=== PATIENT | female | born 1940 | race Caucasian/White ===

== ENCOUNTER → 2016-08-17 | Outpatient (CLI) | payer OTHER ==
[~2016-08-17] VITALS: Ht 167.6 cm; Wt 59.0 kg
[~2016-08-17] MED LIST: ADULT LOW DOSE81 MG PO; BENADRYL25 MG PO; BENTYL 20 MG TA20 M1 PO; CITRACAL + D C1 EACH PO; CLARITIN10 MG PO; COLACE100 MG PO; CRESTOR10 MG PO; DICYCLOMINE HCL20 MG PO; EX-LAX MAXIMUM25 MG PO; FIBER TABS625 MG PO; FISH OIL 1,0001 EAC5 PO; FISHOIL PO; FLEXERIL PO; IBUPROFEN 800800 M1 PO; LISINOPRIL10 MG PO; LOPRESSOR 50 MG50 M1 PO; MOBIC7.5 M1 PO; MULTIPLE VITAM1 EAC3 PO; NIACIN 500 MG500 M1 PO; OXYCODONE HCL 55 MG PO; OXYCONTIN10 M1 PO; PEPCID40 MG PO; PERCOCET 5-3251 EACH PO; PHENERGAN 25 MG25 M1 PO; PREDNISONE 1 MG1 M1 PO; PREDNISONE 10 M10 M1; PRINIVIL5 MG PO; SEROQUEL 25 MG25 M1 PO; SPIRONOLACTONE50 MG PO; TOPROL XL25 MG PO; TRAMADOL 50 MG50 MG PO; ZANTAC 150MG T150 M1 PO
--- NOTE | ~2016-08-17 | S ---
[facility] [place] [address] [place] [address] SURGICAL PATH RPT PROCEDURE Name: KELLY LARSON I Room #: REG [facility]..#: [id number] Admission: 08/17/16 Date of : 44 Discharge: Report #: [id number] Path Case #: [id number] PATHOLOGY REPORT COLLECTION DATE: 08/17/2016 RECEIVED DATE: 08/17/2016 SUBMITTING PHYS: Dr. Jovani Grossman OTHER PHYS: Dr. Brant Prado SPECIMEN(S) RECEIVED: A.SB bx B.Gastric bx * * * * * * * * * * * * FINAL DIAGNOSIS: A. Small bowel mucosa, rule out sprue, endoscopic biopsy: - Negative for villous blunting or increase in intraepithelial lymphocytosis (no diagnostic abnormalities present). B. Gastric mucosa, rule out Helicobacter pylori, endoscopic biopsy: - Mild reactive gastropathy. - Negative for intestinal metaplasia or atrophy. - Negative for Helicobacter pylori. COMMENT: Helicobacter pylori immunohistochemical stain performed on block B1 negative. (IUV:csd; d/t: 08/20/2016) PATHOLOGIST: Dianna Torrez M.D. REPORT ELECTRONICALLY SIGNED BY: Dianna Torrez M.D. DATE/TIME: 08/20/2016 16:18 * * * * * * * * * * * * GROSS PATHOLOGY: A. Received in formalin labeled "FILIPPO Christiansen," are three segments of gottlieb soft tissue measuring 0.6 x 0.6 x 0.2 cm in aggregate dimensions and ranging from 0.2 to 0.4 cm in maximum dimension. The specimen is submitted entirely in cassette A1. B. Received in formalin labeled "Kelly Larson, gastric," are three segments of gottlieb soft tissue measuring 0.9 x 0.6 x 0.1 cm in aggregate dimensions and ranging from 0.3 to 0.7 cm in maximum dimension. The specimen is submitted entirely in cassette B1. (CAA; 08/17/2016) CLINICAL HISTORY: [facility] [employer] [place] [address] SURGICAL PATH RPT PROCEDURE Name: KELLY LARSON I Room #: REG [facility]..#: [id number] Admission: 08/17/16 Date of : 44 Discharge: Report #: [id number] Path Case #: [id number] Abdominal pain, nausea, weight loss A. R/O sprue B. R/O H. pylori INITIAL CPT CODE(S): A; 85726 B; 62291, 41599 Professional services performed by [facility] at [address] , [place] [address] Technical services performed by [facility] at [address] [place] [address], [facility] [address] [address]. [facility] [address] [address] PHONE: [phone] DIRECTOR: Sim Cordova M.D. * * * END OF REPORT * * *
--- NOTE | ~2016-08-17 | P ---
[facility] [place] [address] PROCEDURE REPORT Name: BEBETO COLE I Room #: REG [facility].#: [id number] Admission: 08/17/16 Attend Phys: Jovani Alatorre Discharge: Date of : 44 Report #: [id number] THIS REPORT FOR: //name// CC: Jovani Prado MD DATE OF SERVICE: 08/17/2016 PROCEDURE PERFORMED: Upper endoscopy with biopsies. HISTORY OF PRESENT ILLNESS: The patient is a 76-year-old female who was seen in the office on 08/07/2016 with complaints of weight loss. She lost approximately 130 pounds over the last year. She does report some nausea starting last month. No significant emesis. Last colonoscopy was in February 2015, which showed diverticulosis. The patient denies any abdominal pain. She had a previous laparoscopic cholecystectomy 15 years ago. She is on aspirin and meloxicam among other medications. A CT scan of the abdomen and pelvis was performed in April which showed a segment of rectosigmoid colon suboptimally distended and appears to have some wall thickening, also a segment of distal ileal loop that demonstrates some wall thickening. Plan is for EGD and colonoscopy today. DESCRIPTION OF PROCEDURE: The risks and benefits of the procedure were explained to the patient, those risks including but not limited to bleeding, perforation, the risk of sedation. She understood these risks and gave informed consent. Sedation was given using ketamine and propofol per anesthesia. Next, using a standard InteraXoninon upper endoscope, the scope was placed in the patient's mouth and advanced under direct vision through the esophagus, stomach and into the second portion of the duodenum. The larynx was normal in appearance. The esophagus was normal throughout. The GE junction was normal. Overall, the gastric mucosa was normal. Biopsies were obtained to rule out the possibility of H. pylori. The pylorus was normal and patent. The duodenal bulb, first and second portion were all normal. Biopsies were also obtained to the duodenum to rule out the possibility of celiac sprue. The scope was then withdrawn and the procedure terminated. The patient tolerated the procedure well. IMPRESSION: Normal upper endoscopy. RECOMMENDATIONS: 1. Await biopsy results. 2. We will proceed with colonoscopy next today. [address] [address] PROCEDURE REPORT Name: BEBETO COLE Delma Room #: REG [facility]#: [id number] Admission: 08/17/16 Attend Phys: Jovani Alatorre Discharge: Date of : 44 Report #: [id number] Thank you for allowing me to participate in her care. <ELECTRONICALLY SIGNED> By: Jovani Grossman MD 08/17/16 1443 0906 1015 Jovani Grossman MD /nt
--- NOTE | ~2016-08-17 | P ---
[facility] [place] [address] PROCEDURE REPORT Name: DOUGLASBEBETO Delma Room #: REG [facility].#: [id number] Admission: 08/17/16 Attend Phys: Jovani Alatorre Discharge: Date of : 44 Report #: [id number] THIS REPORT FOR: //name// CC: Jovani Prado MD DATE OF SERVICE: 08/17/2016 PROCEDURE PERFORMED: Colonoscopy. HISTORY OF PRESENT ILLNESS: The patient is a 76-year-old female with weight loss. See EGD report for detailed HPI; however, the patient did have a CT scan in April of last year, which showed possible wall thickening in the rectosigmoid colon as well as the distal ileal loop. DESCRIPTION OF PROCEDURE: The risks and benefits of the procedure were explained to the patient, those risks including but not limited to bleeding, perforation, the risk of sedation. She understood these risks and gave informed consent. Sedation was given using ketamine and propofol per anesthesia. Next, a digital rectal exam was initially performed, which was normal. Next, using a standard [employer] colonoscope, the scope was placed in the patient's anus and advanced under direct vision to the cecum. The overall prep was fair. Most areas were well visualized. Multiple washings and aspirations were performed. The cecum and ileocecal valve was normal in appearance. The terminal ileum was intubated and normal in appearance. The ascending, transverse, descending colon were all normal other than melanosis coli was noted. The patient does have a history of constipation. In the sigmoid colon, multiple diverticula were noted. No evidence of inflammation, no thickening was noted. Rectal mucosa was normal. On retroflexion, small nonbleeding internal hemorrhoids were noted. Scope was then withdrawn and the procedure terminated. The patient tolerated the procedure well. IMPRESSION: 1. Sigmoid diverticulosis. 2. Internal hemorrhoids. 3. Otherwise, normal colonoscopy. RECOMMENDATIONS: 1. Etiology of weight loss is unclear. EGD and colonoscopy were essentially normal today. The patient had a possible segment of distal loop ileum on CT showing possible thickening. We would recommend awaiting biopsies initially. If these are negative, consider small bowel follow through next for further evaluation. [address] [address] PROCEDURE REPORT Name: BEBETO COLE I Room #: REG [facility] Chloe#: [id number] Admission: 08/17/16 Attend Phys: Jovani Alatorre Discharge: Date of : 44 Report #: [id number] Thank you for allowing me to participate in her care. <ELECTRONICALLY SIGNED> By: Jovani Grossman MD 08/17/16 1443 0908 1031 Jovani Grossman MD /nt
== END ==
LOC: GI 07:04
DX: Z12.11 Encounter for screening for malignant neoplasm of colon (principal); K57.30 Diverticulosis of large intestine without perforation or abscess without bleeding; K58.8 Other irritable bowel syndrome; K31.9 Disease of stomach and duodenum, unspecified; K21.9 Gastro-esophageal reflux disease without esophagitis; K64.8 Other hemorrhoids; I10 Essential (primary) hypertension; E78.5 Hyperlipidemia, unspecified; Z90.49 Acquired absence of other specified parts of digestive tract; Z90.710 Acquired absence of both cervix and uterus; Z96.643 Presence of artificial hip joint, bilateral; Z96.611 Presence of right artificial shoulder joint
CPT/HCPCS: 62110

== ENCOUNTER → 2016-11-08 | Outpatient (CLI) | payer OTHER | LOC: RAD 10-03 08:38 | DX: R63.4 Abnormal weight loss (principal); R11.0 Nausea ==

== ENCOUNTER 2018-02-26 16:09 | Emergency (ER) | payer OTHER ==
[~2018-02-26] VITALS: Ht 165.1 cm; Wt 59.0 kg
--- NOTE | ~2018-02-26 | EKG ---
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: : 1940 Requested By: Griselda Beasley Order Number: [id number] MD: Tao Britt Measurements Intervals [place] Rate: 91 P: -7 WI: 153 QRS: -68 QRSD: 101 T: 71 QT: 378 QTc: 466 Interpretive Statements Sinus rhythm Left anterior hemiblock Poor R wave progression Compared to ECG 05/26/2015 06:30:49 No significant change was found Electronically Signed On 02-27-2018 8:42:16 CDT by Tao Britt [email or web address] <ELECTRONICALLY SIGNED> By: Tao Britt MD, [facility] 02/27/18 0842 01 01 Tao Britt MD, FACC /EPI
--- NOTE | ~2018-02-26 | H ---
[facility] [place] [address] HISTORY AND PHYSICAL Name: DOUGLASBEBETO Delma Room #: DEP Chloe#: [id number] Admission: 02/26/18 Attend Phys: Discharge: 02/26/18 Date of : 44 Report #: [id number] THIS REPORT FOR: //name// CC: Griselda Prado DATE OF SERVICE: 02/26/2018 HISTORY OF PRESENT ILLNESS: This 77-year-old female has a chronically unstable left total hip arthroplasty. She has had 10-12 dislocations in the past. She has always required reduction under anesthesia. She has not dislocated for about 2 years. This evening, she was leaning forward while seated on the bed to reach something on the floor and the hip dislocated once again. She was brought to the Emergency Department and they were unable to reduce the hip. We have elected to bring her to the Operating Room for reduction under anesthesia. PAST MEDICAL HISTORY: Notable principally for these chronic hip problems. PHYSICAL EXAMINATION: GENERAL: She is frail, but alert. 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 She is in moderate discomfort. LUNGS: Clear. CARDIAC: Reveals a regular rate and rhythm. NECK AND BACK: Normal. EXTREMITIES: Left hip is shortened and rotated consistent with a posterior dislocation. NEUROLOGIC AND VASCULAR: Distal neurologic and vascular status appeared to be intact. X-rays confirm a posterior dislocation of the left hip. I have discussed this with the patient and her who wished to go ahead with reduction under anesthesia. <ELECTRONICALLY SIGNED> By: Lincoln Chester MD 03/04/18 1413 1925 1956 Lincoln Chester MD /nt
--- NOTE | ~2018-02-26 | O ---
[facility] [address] [address] OPERATIVE REPORT Name: BEBETO COLE I Room #: [facility] [id number] Admission: 02/26/18 Attend Phys: Discharge: 02/26/18 Date of : 44 Report #: [id number] THIS REPORT FOR: //name// CC: Griselda Prado DATE OF SERVICE: 02/26/2018 PREOPERATIVE DIAGNOSIS: Posterior dislocation, left total hip arthroplasty. POSTOPERATIVE DIAGNOSIS: Posterior dislocation, left total hip arthroplasty. PROCEDURE: Reduction of dislocated left total hip arthroplasty. SURGEON: Lincoln Chester MD. INDICATIONS: This 77-year-old female has a chronically unstable left total hip arthroplasty with about 10 or 12 dislocations in the past. She has not had a dislocation for over 2 years. She was leaning forward on her bed to reach the floor and felt the hip gave away and popped out of joint this evening. They were unable to reduce the hip in the Emergency Department and so, we brought her to the operating room for reduction under brief anesthetic. DESCRIPTION OF PROCEDURE: The patient was placed under brief anesthesia and relaxed. The left hip was then gently manipulated with flexion and rotation. The hip reduced in a satisfactory fashion. Its alignment was confirmed with an intraoperative x-ray. The hip seemed to be stable with gentle rotation and flexion. No further treatments were necessary. The patient was awakened and returned to recovery room in good condition. Her notes that she has always been able to go home immediately after closed reduction and is hoping to leave the hospital this evening from the recovery room once she is awake and stable. We will plan to see her back in the office in 2-3 weeks if any symptoms require at that point. <ELECTRONICALLY SIGNED> By: Lincoln Chester MD 03/04/18 1413 27 48 Lincoln Chester MD /nt
[2018-02-26] MEDS ORDERED: ONDANSETRON HCL4 M2 PO (16:21)
[2018-02-26] MEDS ORDERED: CARBIDOPA-LEVO1 EAC9 PO (16:21)
[2018-02-26] MEDS ORDERED: LINZESS290 MCG PO (16:22)
[2018-02-26] MEDS ORDERED: ZANAFLEX4 MG PO (16:23)
[2018-02-26] MEDS ORDERED: VITAMIN B-12500 MCG PO (16:24)
[2018-02-26 18:07] LABS: ABSOLUTE NEUTROPHILS 4.6 thou/uL (1.4-8.2); BASOPHILS 0.7 % (0.0-2.0); EOSINOPHILS 1.7 % (0.0-3.0); HEMATOCRIT 41.7 % (37.0-47.0); LYMPHOCYTES 24.1 % (24.0-44.0); MCH 30.2 pg (26.0-34.0); MCHC 33.6 g/dL (28.0-37.0); MCV 89.9 fL (80.0-100.0); MONOCYTES 5.1 % (1.0-8.0); PLATELET COUNT 167 thou/uL (150-400); POLYS 68.4 % (36.0-66.0); RBC 4.63 mil/uL (4.20-5.00); WBC 6.7 thou/uL (4.0-11.0)
[2018-02-26 18:09] LABS: CALCIUM 9.5 mg/dL (8.5-10.1); CREATININE 0.9 mg/dL (0.6-1.0); POTASSIUM 3.8 mmol/L (3.5-5.1)
[2018-02-26 18:15] LABS: ALBUMIN 3.5 g/dL (3.4-5.0); TOTAL BILIRUBIN 0.5 mg/dL (<0.1-1.0); TOTAL PROTEIN 6.9 g/dL (6.4-8.2)
[2018-02-26 19:42] VITALS: BP 128/63
== END 2018-02-26 19:08 | disposition still patient (30) ==
LOC: ER 16:09
PROVIDERS: Physician Assistant
DX: S73.015A Posterior dislocation of left hip, initial encounter (principal); K58.9 Irritable bowel syndrome, unspecified; K21.9 Gastro-esophageal reflux disease without esophagitis; E78.5 Hyperlipidemia, unspecified; Z88.5 Allergy status to narcotic agent; Z88.0 Allergy status to penicillin; Z88.8 Allergy status to other drugs, medicaments and biological substances; Z90.49 Acquired absence of other specified parts of digestive tract; Z90.710 Acquired absence of both cervix and uterus; Z96.643 Presence of artificial hip joint, bilateral; Z90.89 Acquired absence of other organs; Z96.611 Presence of right artificial shoulder joint; X58.XXXA Exposure to other specified factors, initial encounter; Y92.89 Other specified places as the place of occurrence of the external cause; Y93.89 Activity, other specified; Y99.8 Other external cause status
CPT/HCPCS: 50101; 62110; 62850; 70005

== ENCOUNTER 2018-05-26 10:05 | Inpatient (IN) | payer OTHER ==
[~2018-05-26] VITALS: Ht 165.1 cm; Wt 70.3 kg
[~2018-05-26 10:05] MED LIST changes: +CARBIDOPA-LEVO1 EAC9 PO; +LINZESS290 MCG PO; +ONDANSETRON HCL4 M2 PO; +VITAMIN B-12500 MCG PO; +ZANAFLEX4 MG PO
[2018-05-26 10:06] VITALS: BP 165/62
[2018-05-26] MEDS ORDERED: PERCOCET 7.5-31 EACH PO (10:14)
[2018-05-26 11:48] VITALS: BP 147/88
[2018-05-26 12:44] VITALS: BP 147/88
--- NOTE | 2018-05-29 08:07 | O ---
[facility] [place] [address] OPERATIVE REPORT Name: BEBETO COLE I Room #: 150-1 [facility] IN M.R.#: [id number] Admission: 05/26/18 Attend Phys: Lincoln Chester MD Discharge: 05/26/18 Date of : 44 Report #: [id number] THIS REPORT FOR: //name// CC: Lincoln Prado DATE OF SERVICE: 05/26/2018 PREOPERATIVE DIAGNOSIS: Dislocated left total hip. POSTOPERATIVE DIAGNOSIS: Dislocated left total hip. PROCEDURE: Reduction left total hip dislocation under anesthesia. SURGEON: Lincoln Chester MD INDICATIONS: This is a 78-year-old female has a chronically unstable left hip. She has had multiple dislocations in the past, but prefers to avoid revision surgery. Today, she was leaning forward on her bed, trying to reach the floor and the left hip popped out of place. She was seen in the Emergency Room where reduction was not possible. She was therefore brought to the operating room for reduction under anesthesia. DESCRIPTION OF PROCEDURE: The patient was placed under brief IV sedation and relaxation. The left hip was then gently manipulated in flexion and rotation. A satisfactory reduction was accomplished. This was confirmed with C-arm fluoroscopy. The hip seemed stable in a neutral position. The patient was then awakened and returned to recovery room in good condition. She will be monitored there for a suitable period and then discharged home. <ELECTRONICALLY SIGNED> By: Lincoln Chester MD 05/29/18 0807 1235 1254 Lincoln Chester MD /nt
--- NOTE | 2018-05-29 08:07 | HC ---
[facility] [place] [address] CONSULTATION Name: BEBETO COLE I Room #: 150-[address] [facility] IN M.R.#: [id number] Admission: 05/26/18 Attend Phys: Lincoln Chester MD Discharge: 05/26/18 Date of : 44 Report #: [id number] THIS REPORT FOR: //name// CC: Lincoln Prado DATE OF SERVICE: 05/26/2018 CHIEF COMPLAINT: Recurrent left total hip dislocation. HISTORY OF PRESENT ILLNESS: This 78-year-old female underwent left total hip replacement many years ago. She has had intermittent hip dislocation with limited events. She seemed to be doing rather well for a few years until another dislocation earlier this year. This was reduced under brief anesthetic. Today, she was reaching forward to pick something from the floor and the left hip dislocated once again. She came to Emergency Room and they were unable to reduce the hip, which has been the situation in the past as well. We have elected therefore to bring her to the operating room for reduction under anesthesia. At the time of my evaluation, she is alert and oriented. She has no other complaints of injuries or problems. The right lower extremity is shortened and internally rotated consistent with a posterior dislocation. Neurologic and vascular status appeared to be intact. X-rays have confirmed a dislocation of the left hip. IMPRESSION: I have discussed this with the patient and her . We have agreed to go ahead with a brief anesthetic and reduction under anesthesia, which has been successful in the past. <ELECTRONICALLY SIGNED> By: Lincoln Chester MD 05/29/18 0807 1221 1838 Lincoln Chester MD /nt
== END 2018-05-26 13:15 | disposition home or self-care (01) | DRG 538 ==
LOC: ER 10:05 → TBA 12:39
PROVIDERS: ADMIT Orthopaedic Surgery
PROC: 0SSBXZZ Reposition Left Hip Joint, External Approach (ICD-10-PCS; principal; 2018-05-26)
DX: S73.015A Posterior dislocation of left hip, initial encounter (principal); E78.5 Hyperlipidemia, unspecified; K21.9 Gastro-esophageal reflux disease without esophagitis; Z96.643 Presence of artificial hip joint, bilateral; Z96.611 Presence of right artificial shoulder joint; X58.XXXA Exposure to other specified factors, initial encounter; Y93.89 Activity, other specified; Y92.89 Other specified places as the place of occurrence of the external cause; Y99.8 Other external cause status; Z90.49 Acquired absence of other specified parts of digestive tract; Z90.710 Acquired absence of both cervix and uterus; Z79.82 Long term (current) use of aspirin; Z79.899 Other long term (current) drug therapy; Z88.5 Allergy status to narcotic agent; Z88.0 Allergy status to penicillin; Z88.8 Allergy status to other drugs, medicaments and biological substances
CPT/HCPCS: 50010; 50101; 62110; 62850; 70005